=== PATIENT | female | born 1995 | race Caucasian/White ===

== ENCOUNTER 2025-02-23 16:28 | Emergency (ER) | payer OTHER, SELFPAY ==
--- NOTE | ~2025-02-23 | XR_ITS ---
CLINICAL HISTORY: Low back pain 3 views lumbar spine Comparison: None Findings: Normal alignment. No acute fractures or dislocation. Mild degenerative changes of the lumbar spine with small osteophytes. IMPRESSION: No acute findings. This document has been electronically signed by: Patric Wharton MD on 02/23/2025 18:21:57
[2025-02-23 16:31] VITALS: BP 126/77; PULSE 103; RESP 18; TEMP 36.4; O2SAT 98; BMI 46.9
--- NOTE | 2025-02-23 16:31 | ED.BACK ---
HPI - Back Pain/Injury General Chief Complaint: Back Pain/Injury Stated Complaint: Lower R Back Pain Time Seen by Provider: 02/23/25 16:55 Source: patient, RN notes reviewed and old records reviewed Mode of arrival: ambulatory Limitations: no limitations History of Present Illness ED Provider: Eugene HPI Narrative: Patient is a 30-year-old female with history of RLS presenting to the emergency department with complaint of atraumatic right lower back pain for the past 5 weeks. Describes pain as a cramping/spasming sensation. Denies any heavy lifting or strenuous activity prior to onset. Initially presented to [facility] shortly after symptoms began. States she was prescribed orphenadrine and oxycodone which did not help at all. She then returned to the ED and was given ?bupivicaine injection to her back, state this also did not decrease her pain. Then saw PCP who prescribed prednisone and advised alternating Tylenol and ibuprofen. Patient states this was also not helpful in decreasing her pain. She denies any saddle anesthesia, bowel or bladder incontinence, history of cancer IV drug use, denies fevers. Denies any history of back surgery. States pain radiates down both lower extremities to mid thigh. Has physical therapy scheduled to start on March 28. elicited complaint: back pain Related Data Previous Rx's ?Medication ?Instructions ?Recorded lidocaine 5 % topical patch 1 patch topical DAILY #15 ea 02/23/25 tizanidine 2 mg tablet 2 mg PO Q6H PRN muscle spasticity 02/23/25 #10 tabs Allergies Allergy/AdvReac Type Severity Reaction Status Date / Time almond Allergy Intermediate Difficulty Verified 02/23/25 16:35 Swallowing Review of Systems Review of Systems: As per HPI Yes all other systems are reviewed and are negative Constitutional: Constitutional: Reports as per HPI [facility] Social History Social History Smoked in Last 30 Days: No Use of substances other than those prescribed or required for medical reasons: No Advance Directives: No Advance Directives Information Provided: No Do you have a plan to hurt others: No Plan Patient : No Physical Exam Vital Signs: Vital Signs: Last Vital Signs Temp 97.5 F 02/23/25 16:31 Pulse 103 H 02/23/25 16:31 Resp 18 02/23/25 16:31 BP 126/77 02/23/25 16:31 Pulse Ox 98 02/23/25 16:31 O2 Del Method Room Air 02/23/25 16:31 BMI result Body Mass Index 46.9 Vital signs have been reviewed and appear to be correct. Blood pressure normal. Heart rate slightly tachycardic. Respiratory rate normal. Temperature normal. Oxygen saturation normal. Const: General: cooperative, healthy appearing and no acute distress Orientation/consciousness: oriented to person, oriented to place, oriented to time and patient oriented x3 Limitations: no limitations HEENT: Head: Yes normocephalic and Yes atraumatic Ears: external ears normal General nose exam: Normal external nose present Face and sinus: Yes face symmetric Mouth: oropharynx normal and moist mucous membranes Throat: Yes uvula midline Eyes: Pupils: Equal, round and reactive pupils present Neck: Neck: Yes normal visual inspection and Yes supple Resp: Effort & Inspection: normal respiratory effort and able to speak in complete sentences Auscultation: clear to auscultation bilaterally Cardio: Rate: regular rate Rhythm: regular rhythm Heart sounds: S1 normal heart sound present and S2 normal heart sound present GI: Palpation (GI): Soft to palpation and nontender Auscultation: normoactive bowel sounds : General: Yes no CVA tenderness Back/Spine/Pelvis: Back: no CVA tenderness Thoracic/Lumbar Spine: thoracic and lumbar spine normal to inspection, thoraco-lumbar ROM normal, pain with thoraco-lumbar ROM, paraspinal muscle tenderness on the right in the lower lumbar, No thoracic spinal tenderness, lumbar spinal tenderness at L3, at L4 and at L5 and straight leg raise positive bilateral at 30 degrees Pelvis: no pain with anterior-posterior compression and pain with lateral compression Sacroiliac joints: on the right tender to palpation Skin: General skin exam: elasticity normal and turgor normal Neuro: General: oriented to person, oriented to place, oriented to time, patient oriented x3, gait normal, tone normal, moves all extremities, Normal light touch and pain sensation, no focal motor deficits, CN's II-XI intact bilaterally and deep tendon reflexes 2+ bilaterally Cranial nerves: Yes Equal, round and reactive pupils present Cognition (Neuro): normal cognition Motor exam (neuro): 5/5 motor strength present throughout, Normal motor muscle tone present throughout and Motor abnormalities not present Extrem: General: Yes full ROM, Yes no pedal edema and Yes no calf tenderness Psych: Mental Status: mental status grossly normal Affect: normal affect Thought process: Normal thought process present Course Course Course Narrative: This is a Rapid Medical Exam performed in triage by Elissa Reyes PA-C. Full HPI, ROS and PE to be performed by primary ED provider. 30 yo F presenting to the ED c/o R sided low back pain x 36 days. Denies injury/fall or trauma. Has been on multiple medications including injections and Prednisone w/o relief. Admits pain shoots down legs. PT scheduled to start 03/28. Was seen at [facility] ED 5 wks ago for similar sx. Denies incontinence/retention PE: No midline spinous tenderness. Ambulating with steady gait. Reproducible right-sided lumbar/upper buttock MSK tenderness. No rash or erythema Plan: X-ray, UA Medical Decision Making Medical Decision Making [facility] Narrative: Patient is a 30-year-old female with history of RLS presenting to the emergency department with complaint of atraumatic right lower back pain for the past 5 weeks. On exam patient is awake, A+Ox3, VS WNL, afebrile, normal neurological exam without focal deficits, physical exam findings as above. Given reported symptoms and physical exam findings, initial differential includes but is not limited to initial differential includes lumbar strain, lumbar radiculopathy, degenerative disc disease, disc herniation, spinal stenosis, spondylosis. Less likely vertebral fracture. No red flag findings concerning for malignancy/mass, SEA, cauda equina/cord compression. X-ray lumbar spine notable for no acute abnormalities. My interpretation is in agreement with the radiologist's interpretation. No evidence of infection on urinalysis. Results discussed with patient and all questions answered. Will trial different type of muscle relaxer as well as topical lidocaine patches. Patient is in agreement with this plan. Return precautions discussed. Patient verbalized understanding of and agreement with plan. Differential Diagnosis Differential Diagnoses: The differential diagnosis associated with the presentation includes As per [facility] Admission/Observation Consideration of admission/observation: Escalation of care including admission/observation considered Patient would have been admitted to the hospital had their work up had any findings where hospital admission was appropriate and their clinical presentation warranted hospital admission. Lab Data [facility] Lab Attestation statement: I reviewed the patient's lab results. As per [facility] Labs: Lab Results 02/23/25 Range/Units 16:45 Urine Color Yellow Urine Appearance Clear Urine pH 6.5 (5.0-9.0) Ur Specific [place] 1.010 (1.005-1.025) Urine Protein Negative (Neg-Trace) mg/dL Urine Glucose (UA) Negative (Negative) mg/dL Urine Ketones Negative (Negative) mg/dL Urine Blood Negative (Negative) Urine Nitrite Negative (Negative) Ur Leukocyte Esterase Negative (Negative) Urine Test NEGATIVE (NEGATIVE) Independent Interpretation I performed an independent interpretation of an: Plain X-Ray Interpretation: No acute abnormalities x-ray lumbar spine Radiology Impression Discussion of test interpretation with radiology: I have reviewed the radiologist's reading. Radiologist Impression: CLINICAL HISTORY: Low back pain 3 views lumbar spine Comparison: None Findings: Normal alignment. No acute fractures or dislocation. Mild degenerative changes of the lumbar spine with small osteophytes. IMPRESSION: No acute findings. External Record Review External record reviewed: Inpatient record, Office record and Outpatient record Prescription Management I considered prescription management with: Pain Medication and Other Discharge Plan Discharge Clinical Impression: Strain of lumbar region Patient Disposition: Home, Self-Care Instructions: Low Back Strain (ED), Lower Back Exercises (ED), Core Strengthening Exercises (ED) Additional Instructions: You were evaluated in the emergency department today for back pain. Your evaluation did not show signs of medical conditions requiring emergent intervention at this time. You have been prescribed a muscle relaxer called tizanidine which you may take every 6 hours as needed for spasms. Do not drive, drink alcohol, or operate heavy machinery while taking this as it can cause drowsiness. You have been prescribed 5% topical lidocaine patches which you can wear for up to 12 hours in a 24 hour period. Do not apply heat directly over the patches. Please schedule an appointment for follow-up with your primary care physician this week for further evaluation of your symptoms. If these medications were helpful in controlling your symptoms, let your PCP know. Return to the emergency department if you experience worsening back pain, difficulty walking, fevers, numbness, tingling, incontinence, groin numbness or tingling, or any other concerning symptoms. Prescriptions: New lidocaine 5 % adhesive patch,medicated 1 patch topical DAILY Qty: 15 0RF Rx Instructions: leave on most painful area for up to 12 hrs tizanidine 2 mg tablet 2 mg PO Q6H PRN (Reason: muscle spasticity) Qty: 10 0RF Print Language: Amharic
[2025-02-23 16:52] LABS: Appearance Urine Clear; Color Urine Yellow; Glucose Urine UA Negative (Negative); Leukocyte Esterase Urine Negative (Negative); Nitrite Urine Negative (Negative); PH 6.5 (5.0-9.0); Urine Blood Negative (Negative); Urine Ketones Negative (Negative); Urine Protein Negative (Neg-Trace)
[2025-02-23 16:53] LABS: UPreg QC Valid YES; Urine Pregnancy NEGATIVE (NEGATIVE)
[2025-02-23 18:51] VITALS: BP 122/76; PULSE 96; RESP 18; TEMP 36.4; O2SAT 98
== END 2025-02-23 18:52 | disposition home or self-care (01) ==
PROVIDERS: Physician Assistant; Emergency Provider Emergency Medicine
DX: M54.50 Low back pain, unspecified (principal); Z79.899 Other long term (current) drug therapy
CPT/HCPCS: 72100; 81003; 81025; 99283; 99284

== ENCOUNTER → 2025-02-23 16:36 | Outpatient (BNV) | payer OTHER, SELFPAY | PROVIDERS: Emergency Provider Emergency Medicine; Visit Provider Nuclear Medicine | DX: M51.369 Other intervertebral disc degeneration, lumbar region without mention of lumbar back pain or lower extremity pain (principal) | CPT/HCPCS: 72100 ==